=== PATIENT | female | born 1985 | race Two or more races ===

== ENCOUNTER 2019-07-19 21:32 | Emergency (ER) | payer SELFPAY ==
--- NOTE | 2019-07-20 00:25 | ER Document Report ---
ED General - General Chief Complaint: Cough Stated Complaint: COUGH/SORE THROAT Time Seen by Provider: 07/19/19 23:45 Notes: 33-year-old female presents emergency department complaining of a cough for the past 3 weeks that has been steadily improving, initially started out as wet but is now nonproductive and dry. Denies any shortness of breath or dyspnea on exertion, denies any chest pain. States that she has now had a sore throat that causes pain with swallowing for the past 3 days and a hoarse voice. States it is not relieved with cough drops. Patient denies any difficulty swallowing, denies any foreign body sensation or any sensation that food gets stuck. Simply states that it hurts. Denies fevers. TRAVEL OUTSIDE OF THE [place] IN LAST 30 DAYS: No - Related Data Allergies/Adverse Reactions: No Known Allergies Allergy (Verified 07/15/14 11:35) Past Medical History - General Information source: Patient - Social History Smoking Status: Current Every Day Smoker Frequency of alcohol use: Occasional Drug Abuse: None Family History: Reviewed & Not Pertinent Patient has suicidal ideation: No Patient has homicidal ideation: No - Past Medical History Cardiac Medical History: Reports: Hx Hypertension - preclampsia Renal/ Medical History: Reports: Hx Kidney Stones - Immunizations Hx Diphtheria, Pertussis, Tetanus Vaccination: Yes Review of Systems - Review of Systems Constitutional: Diaphoresis - Sweats at night. denies: Fever, Malaise EENT: See HPI - Clear rhinorrhea, sore throat. Cardiovascular: No symptoms reported Respiratory: See HPI -: Yes All other systems reviewed and negative Physical Exam - Vital signs Vitals: Temp Pulse Resp BP Pulse Ox 98.7 F 86 18 155/97 H 99 07/19/19 21:48 07/19/19 21:48 07/19/19 21:48 07/19/19 21:48 07/19/19 21:48 Interpretation: Hypertensive - Notes Notes: GENERAL: Alert, interacts well. No acute distress. HEAD: Normocephalic, atraumatic EYES: Pupils equal, round and reactive to light, extraocular movements intact. ENT: Oral mucosa moist, tongue midline. Clear rhinorrhea, tympanic membrane injection on the right with clear fluid and bulging tympanic membrane, no cloudy fluid. Cobblestoning in the posterior oropharynx. No tonsillar exudates, no enlarged tonsils, no evidence of peritonsillar abscess. NECK: Full range of motion, supple, trachea midline. Anterior cervical lymphadenopathy noted. LUNGS: Clear to auscultation bilaterally, no wheezes, rales or rhonchi, no respiratory distress. HEART: Regular rate and rhythm, no murmurs, gallops, rubs. ABDOMEN: Soft, nontender, nondistended, bowel sounds present in all 4 quadrants. EXTREMITIES: Moves all 4 extremities spontaneously, no edema, radial and dorsalis pedis pulses 2/4 bilaterally. No cyanosis. NEUROLOGICAL: Alert and oriented x3, hoarse voice. PSYCH: Normal mood, normal affect. SKIN: Warm, Dry, normal turgor, no rashes or lesions noted. Course - Re-evaluation Re-evalutation: 07/20/19 00:21 Strep swab negative. Cough is improving, no fevers, no shortness of breath, normal vital signs with the exception of hypertension. Patient will be treated symptomatically for viral upper respiratory infection causing viral pharyngitis and discharged home. No indication for chest x-ray, low suspicion for p neumonia, no indication for antibiotics. - Vital Signs Vital signs: Temp Pulse Resp BP Pulse Ox 98.7 F 86 18 155/97 H 99 07/19/19 21:48 07/19/19 21:48 07/19/19 21:48 07/19/19 21:48 07/19/19 21:48 Discharge - Discharge Clinical Impression: Viral upper respiratory tract infection with cough, Viral pharyngitis Condition: Stable Disposition: HOME, SELF-CARE Additional Instructions: Sore Throat Sore throats may be caused by viruses, bacteria, or fungi. Most are due to a virus, and must get better on their own. You do not need antibiotics. You do not need antibiotics. This is viral. We have given you steroids to help decrease the pain in your throat and the swelling in your vocal cords. To relieve symptoms, take acetaminophen for pain. Sip clear liquids freque ntly, or eat popsicles or ice chips. Anesthetic sprays or lozenges may help. Make sure the air in the room is not too dry. Call the doctor if there is no improvement in two days, or if you have difficulty breathing, increasing throat pain, high fever, rash, or frequent vomiting. Please use nasal saline rinses such as a NetiPot or NeilMed Sinus Rinses. Please use nasal steroid such as Nasonex 1 squirt per nostril twice a day to decrease inflammation and swelling. Please also use xipg-fvc-[id number] decongestants according to their directions on the box such as Sudafed during the day and Benadryl at night. Prescriptions: Benzonatate [Tessalon Perles 100 mg Capsule] 100 mg PO Q8HP PRN #40 capsule PRN Reason: Prednisone [Deltasone 20 mg Tablet] 2 tab PO DAILY 5 Days tablet Forms: Return to Work
--- NOTE | 2019-07-20 00:49 | RADIOLOGY REPORT (SQ) ---
CLINICAL HISTORY: cough x 2 weeks COMPARISON: None. TECHNIQUE: XR CHEST 2 VIEWS 07/19/2019 11:46 PM BASE REMOVER FINDINGS: Cardiac silhouette is normal in size. Lungs are clear without consolidation, atelectasis, mass or edema. There is no pleural effusion. There is no pneumothorax. There are no acute osseous findings. IMPRESSION: Clear lungs.
[2019-07-20 01:17] VITALS: BP 145/81
== END 2019-07-20 01:01 | disposition home or self-care (01) ==
LOC: ER 21:32
DX: J06.9 Acute upper respiratory infection, unspecified (principal); J02.9 Acute pharyngitis, unspecified; F17.200 Nicotine dependence, unspecified, uncomplicated; R61 Generalized hyperhidrosis
CPT/HCPCS: 71046; 87070; 87880; 99283

== ENCOUNTER 2019-08-29 16:34 | Emergency (ER) | payer SELFPAY ==
[2019-08-29] MEDS ORDERED: DOCUSATE SODIUM 100 MG/10 ML UDC AS ONE (17:40)
--- NOTE | 2019-08-29 17:43 | ER Document Report ---
HPI - HPI Time Seen by Provider: 08/29/19 17:32 Onset: This evening Onset/Duration: Waxing and waning Quality of pain: No pain Pain Level: Denies Context: Patient states she was using a Q-tip to clean her left ear and is concerned part of the Q-tip is in her ear canal. Patient denies any blood from the ear. Patient reports decreased hearing. Exacerbated by: Denies Relieved by: Denies Similar symptoms previously: No Recently seen / treated by doctor: No - ROS ROS below otherwise negative: Yes Systems Reviewed and Negative: Yes All other systems reviewed and negative - CONSTITUTIONAL Constitutional: DENIES: Fever, Chills - EENT EENT: REPORTS: Ear Pain - GASTROINTESTINAL Gastrointestinal: DENIES: Nausea, Patient vomiting - REPRODUCTIVE Reproductive: DENIES: : - DERM Skin Color: Normal Skin Problems: None Past Medical History - General Information source: Patient - Social History Smoking Status: Current Some Day Smoker Frequency of alcohol use: Occasional Drug Abuse: None Occupation: [employer] Lives with: Family Family History: Reviewed & Not Pertinent Patient has suicidal ideation: No Patient has homicidal ideation: No - Past Medical History Cardiac Medical History: Reports: Hx Hypertension - preclampsia Renal/ Medical History: Reports: Hx Kidney Stones Surgical Hx: Negative - Immunizations Hx Diphtheria, Pertussis, Tetanus Vaccination: Yes Vertical Provider Document - CONSTITUTIONAL Agree With Documented VS: Yes Exam Limitations: No Limitations General Appearance: WD/WN, No Apparent Distress - INFECTION CONTROL TRAVEL OUTSIDE OF THE [place] IN LAST 30 DAYS: No - HEENT HEENT: Atraumatic, Normocephalic. negative: Tympanic Membrane Red, Tympanic Membrane Bulging Notes: Patient with excessive cerumen against the left TM, no other retained foreign object, TM otherwise normal - NECK Neck: Normal Inspection, Supple. negative: Lymphadenopathy-Left, Lymphadenopathy-Right - RESPIRATORY Respiratory: Breath Sounds Normal, No Respiratory Distress - CARDIOVASCULAR Cardiovascular: Regular Rate, Regular Rhythm - MUSCULOSKELETAL/EXTREMETIES Musculoskeletal/Extremeties: MAEW - NEURO Level of Consciousness: Awake, Alert, Appropriate - DERM Integumentary: Warm, Dry, No Rash Course - Re-evaluation Re-evalutation: 08/29/19 19:39 Ear irrigated with half warm water and peroxide solution. What did appear to be cerumen with possible Q-tip cotton swab was irrigated from ear. Patient does have some cerumen still remaining in the ear. Patient encouraged to use obki-lzz-avcqonz Debrox to help irrigate the remaining cerumen out of the ear. Patient also encouraged to follow-up with ENT for any persistent problems. Discharge - Discharge Clinical Impression: Foreign body of ear, left Qualifiers: Encounter type: initial encounter Qualified Code(s): T16.2XXA - Foreign body in left ear, initial encounter Condition: Stable Disposition: HOME, SELF-CARE Additional Instructions: Return immediately for any new or worsening symptoms Followup with your primary care provider, call tomorrow to make a followup appointment May use avgv-[id number] ear irrigation kit to help remove excess earwax Follow-up with ear nose and throat doctor for recheck for any persistent problems Referrals: [facility] [Provider Group] - Follow up as needed
[2019-08-29 19:50] VITALS: BP 141/93
== END 2019-08-29 19:46 | disposition home or self-care (01) ==
LOC: ER 16:34
DX: T16.2XXA Foreign body in left ear, initial encounter (principal); X58.XXXA Exposure to other specified factors, initial encounter; H61.22 Impacted cerumen, left ear; F17.200 Nicotine dependence, unspecified, uncomplicated
CPT/HCPCS: 99282

== ENCOUNTER 2020-02-02 10:41 | Emergency (ER) | payer SELFPAY ==
[2020-02-02 10:51] VITALS: BP 140/89
--- NOTE | 2020-02-02 11:20 | ER Document Report ---
ED Flu Like - General Stated Complaint: LOSS OF TASTE/SMELL Time Seen by Provider: 02/02/20 10:49 Notes: CHIEF COMPLAINT: Wants COVID test HPI: 34-year-old female presenting to the emergency department requesting a COVID test. She states that she had cough and cold symptoms last week with a low-grade fever and body ache. Patient states that she lives with her cousin who had similar symptoms and who later tested positive for COVID. Patient states that she did lose her sense of smell and taste last week but it has slowly returned. No cough this week no body ache this week the patient was concerned that she may have had COVID in the last week ROS: See HPI - all other systems were reviewed and are otherwise negative Constitutional: no fever Eyes: no drainage, no blurred vision ENT: Positive runny nose, no sore throat Cardiovascular: no chest pain Resp: no SOB, no cough GI: no vomiting, no diarrhea, no abdominal pain : no dysuria Integumentary: no rash Allergy: no hives Musculoskeletal: no extremity pain or swelling Neurological: no numbness/tingling, no weakness MEDICATIONS: I agree with the patient medications as charted by the RN. ALLERGIES: I agree with the allergies as charted by the RN. PAST MEDICAL HISTORY/PAST SURGICAL HISTORY: Reviewed and agree as charted by RN. SOCIAL HISTORY: Reviewed and agree as charted by RN. FAMILY HISTORY: No significant familial comorbid conditions directly related to patient complaint EXAM: Reviewed vital signs as charted by RN. CONSTITUTIONAL: Alert and oriented and responds appropriately to questions. Well-appearing; well-nourished HEAD: Normocephalic; atraumatic EYES: PERRL; Conjunctivae clear, sclerae non-icteric ENT: normal nose; positive clear rhinorrhea; moist mucous membranes; pharynx without lesions noted, no uvula edema or deviation, no tonsillar hypertrophy, phonation normal NECK: Supple without meningismus; non-tender; no cervical lymphadenopathy, no masses CARD: RRR; no murmurs, no clicks, no rubs, no gallops; symmetric distal pulses RESP: Normal chest excursion without splinting or tachypnea; breath sounds clear and equal bilaterally; no wheezes, no rhonchi, no rales, pulse oximetry 98% on room air not hypoxic ABD/GI: Normal bowel sounds; non-distended; soft, non-tender, no rebound, no guarding; no palpable organomegaly or masses. BACK: The back appears normal and is non-tender to palpation, there is no CVA tenderness EXT: Normal ROM in all joints; non-tender to palpation; no cyanosis, no effusions, no edema SKIN: Normal color for age and race; warm; dry; good turgor; no acute lesions noted NEURO: Moves all extremities equally; Motor and sensory function intact PSYCH: The patient's mood and manner are appropriate. Grooming and personal hygiene are appropriate. MDM: 34-year-old female requesting a COVID test had symptoms last week including loss of smell and taste as well as slight cough runny nose and body ache with low-grade fever. Her symptoms are resolving at this time she has no signs of pneumonia at this time not hypoxic tachypneic or tachycardic. She is afebrile. Will do COVID test, patient was advised to quarantine at home follow-up with PCP TRAVEL OUTSIDE OF THE [place] IN LAST 30 DAYS: No - Related Data Allergies/Adverse Reactions: No Known Allergies Allergy (Verified 07/15/14 11:35) Past Medical History - Social History Smoking Status: Unknown if Ever Smoked Family History: Reviewed & Not Pertinent - Past Medical History Cardiac Medical History: Reports: Hx Hypertension - preclampsia Renal/ Medical History: Reports: Hx Kidney Stones - Immunizations Hx Diphtheria, Pertussis, Tetanus Vaccination: Yes Physical Exam - Vital signs Vitals: Temp Pulse Resp BP Pulse Ox 98.6 F 60 16 140/89 H 100 02/02/20 10:49 02/02/20 10:49 02/02/20 10:49 02/02/20 10:49 02/02/20 10:49 Course - Vital Signs Vital signs: Temp Pulse Resp BP Pulse Ox 98.6 F 60 16 140/89 H 100 02/02/20 10:49 02/02/20 10:49 02/02/20 10:49 02/02/20 10:49 02/02/20 10:49 Discharge - Discharge Clinical Impression: Person under investigation for COVID-19 Condition: Stable Disposition: HOME, SELF-CARE Additional Instructions: Patient was provided with discharge information including: As a person under investigation for Covid 19, the [facility], division of public health advises you to adhere to the following guidance until your test results are reported to you. If your test result is positive, you will receive additional information from your provider in your local health department at that time. Remain at home until you are cleared by the health provider or public health authorities. Keep a log of visitors to your home, notify any visitors to your home with your isolation status. If you plan to move to a new address or leave the county, notify the local health department in your County. Call your doctor or seek care if you have an urgent medical need. Before seeking medical care, call ahead to get instructions from the provider before arriving at the medical office clinic or hospital. Notify them that you are being tested for the virus that causes Covid 19 so that arrangements can be made as necessary to prevent transmission to others in the healthcare setting. Next, notify the local health department and your County. If you medical emergency arises and you need to call 911, inform the first responders that you are being tested for the virus that causes Covid 19. Next, notify the local health department and your County Referrals: MEENU RAMIREZ, [NO LOCAL MD] - Follow up as needed
== END 2020-02-02 11:25 | disposition home or self-care (01) ==
LOC: ER 10:41
DX: U07.1 COVID-19 (principal); J34.89 Other specified disorders of nose and nasal sinuses
CPT/HCPCS: 99283; 87635; C9803

== ENCOUNTER 2020-02-20 18:43 | Emergency (ER) | payer SELFPAY ==
[2020-02-20 22:33] VITALS: BP 152/93
[2020-02-20] MEDS ORDERED: MECLIZINE HCL 25 MG TABLET PO ONE (22:40)
--- NOTE | 2020-02-20 22:44 | ER Document Report ---
Entered by MIGEL ESTEVEZ SCRIBE 02/20/20 2231 Acting as scribe for:TATIANA ADAMSON DO ED ENT - General Chief Complaint: Ear Pain Stated Complaint: EAR PAIN Time Seen by Provider: 02/20/20 22:10 Notes: 34 year old female was covid + about 2 weeks ago, but is now better. She last evening developed dizziness and left ear fullness feeling like something may be in the left ear canal. No fever or chills or chest pain or sob. Unsure if fever. No rash. TRAVEL OUTSIDE OF THE [place] IN LAST 30 DAYS: No - HPI Onset/Duration: Gradual Associated symptoms: None - Related Data Allergies/Adverse Reactions: No Known Allergies Allergy (Verified 02/02/20 11:29) Past Medical History - Social History Smoking Status: Former Smoker Frequency of alcohol use: Occasional Family History: Reviewed & Not Pertinent Patient has homicidal ideation: No - Past Medical History Cardiac Medical History: Reports: Hx Hypertension - preclampsia Renal/ Medical History: Reports: Hx Kidney Stones - Immunizations Hx Diphtheria, Pertussis, Tetanus Vaccination: Yes Review of Systems - Review of Systems Constitutional: No symptoms reported EENT: No symptoms reported Cardiovascular: No symptoms reported Respiratory: No symptoms reported Gastrointestinal: No symptoms reported Genitourinary: No symptoms reported Female Genitourinary: No symptoms reported Musculoskeletal: No symptoms reported Skin: No symptoms reported Hematologic/Lymphatic: No symptoms reported Neurological/Psychological: See HPI, Other - dizziness Physical Exam - Vital signs Vitals: Temp Pulse Resp BP Pulse Ox 99 F 66 16 153/98 H 100 02/20/20 21:14 02/20/20 21:14 02/20/20 21:14 02/20/20 21:14 02/20/20 21:14 Interpretation: Normal - General General appearance: Appears well, Alert - HEENT Head: Normocephalic, Atraumatic Eyes: Normal Pupils: PERRL Ears: Normal External canal: Normal Tympanic membrane: Serous effusion - Respiratory Respiratory status: No respiratory distress Chest status: Nontender Breath sounds: Normal Chest palpation: Normal - Cardiovascular Rhythm: Regular Heart sounds: Normal auscultation Murmur: No - Abdominal Inspection: Normal Distension: No distension Bowel sounds: Normal Tenderness: Nontender Organomegaly: No organomegaly - Back Back: Normal, Nontender - Extremities General upper extremity: Normal inspection, Nontender, Normal color, Normal ROM, Normal temperature General lower extremity: Normal inspection, Nontender, Normal color, Normal ROM, Normal temperature, Normal weight bearing. No: Regan's sign - Neurological Neuro grossly intact: Yes Cognition: Normal Orientation: AAOx4 Taya Coma Scale Eye Opening: Spontaneous [place]orn Coma Scale Verbal: Oriented [place] Coma Scale Motor: Obeys Commands Whit[place]orn Coma Scale Total: 15 Speech: Normal Motor strength normal: LUE, RUE, LLE, RLE Sensory: Normal - Psychological Associated symptoms: Normal affect, Normal mood - Skin Skin Temperature: Warm Skin Moisture: Dry Skin Color: Normal Course - Re-evaluation Re-evalutation: 02/20/20 22:39 MDM 34 year old female recovered from covid about 2 weeks ago. Dizziness and left ear fullness. No sign of OM. Will treat with meclizine. Discussed follow up and she expressed understanding. - Vital Signs Vital signs: Temp Pulse Resp BP Pulse Ox 99.0 F 62 17 152/93 H 100 02/20/20 22:28 02/20/20 22:28 02/20/20 22:28 02/20/20 22:28 02/20/20 22:28 Discharge - Discharge Clinical Impression: Dizziness Condition: Stable Disposition: HOME, SELF-CARE Instructions: [facility] ([facility]), Family Physicians / Practices Additional Instructions: See your family doctor in follow up. Tylenol or ibuprofen for fever. Please return here for any problems or any concerns. Take the medicine perscribed for dizziness. Your blood pressure was elevated here. Be sure and have it rechecked. Forms: Elevated Blood Pressure I personally performed the services described in the documentation, reviewed and edited the documentation which was dictated to the scribe in my presence, and it accurately records my words and actions.
== END 2020-02-20 23:03 | disposition home or self-care (01) ==
LOC: ER 18:43
DX: R42 Dizziness and giddiness (principal); Z87.891 Personal history of nicotine dependence
CPT/HCPCS: 99282